=== PATIENT | female | born 1955 | race Caucasian/White ===

== ENCOUNTER 2017-05-07 16:42 | Emergency (ER) | payer MEDICARE ==
[~2017-05-07] VITALS: Ht 172.7 cm; Wt 89.4 kg
[~2017-05-07 16:42] MED LIST: AMLO5 PO; ASPI81TA82 PO; BACT2OIN TOP; CARV3.125 PO; CEPH500C3 PO; LEXA20TA PO; LISI40TA PO; MORP60TA20 OR; PRAS10 PO; PRIL20CA PO; TIZA4 PO; ZOCO40TA PO
[2017-05-07 16:49] VITALS: BP 182/86; PULSE 81; RESP 16; TEMP 98.2; O2SAT 96
[2017-05-07] MEDS ORDERED: CARV3.12 PO (17:00)
[2017-05-07] MEDS ORDERED: NITR1SUB3 SL (17:00)
[2017-05-07] MEDS ORDERED: TIZA2CAP3 PO (17:00)
[2017-05-07] MEDS ORDERED: ESCI20TA PO (17:00)
[2017-05-07] MEDS ORDERED: ESZO1TAB4 PO (17:00)
[2017-05-07] MEDS ORDERED: AMLO10TA2 PO (17:00)
[2017-05-07] MEDS ORDERED: LISI40TA PO (17:00)
[2017-05-07] MEDS ORDERED: SIMV20TA PO (17:00)
[2017-05-07] MEDS ORDERED: ASPI-516 CHEW (17:00)
[2017-05-07] MEDS ORDERED: MORP1TAB26 PO (17:00)
[2017-05-07] MEDS ORDERED: PRAS10TA PO (17:00)
[2017-05-07] MEDS ORDERED: CLOP75TA PO (17:00)
[2017-05-07] MEDS ORDERED: AUGM875T3 PO (17:36)
[2017-05-07] MEDS ORDERED: CHLO.12%30 SWISH-SPIT (17:36)
--- NOTE | 2017-05-07 17:39 | PD ---
HPI . Dentalgia Chief Complaint: Oral / Dental Pain or Problem Time Seen by Provider: 17:04 Travel History International Travel<30 days: No Contact w/Intl Traveler<30days: No Traveled to known affect area: No History of Present Illness HPI 61 year female presents emergency department for evaluation of dentalgia. She denies any fever, chills, malaise, chest pain, shortness breath. Patient has broken and cracked teeth noted throughout the mouth. Patient states onset of pain was yesterday. PFSH Past Medical History Depression: Yes Cancer: No High Cholesterol: Yes Diabetes: Yes Patient Takes Glucophage: No Diminished Hearing: No Endocrine: No GERD: Yes Hypertension: Yes Immune Disorder: No Implanted Vascular Access Dvce: Yes (LEFT UPPER ARE PICC) Kidney Stones: Yes Musculoskeletal: Yes (CHRONIC BACK PAIN) Neurologic: No Psychiatric: Yes Reproductive: No Respiratory: Yes (chronic bronchitis from smoking) Immunizations Current: Yes Menopausal: Yes Past Surgical History Gynecologic Surgery: Yes (HAD BLADDER TACKED WITH HYST) Hysterectomy: Yes Other Surgery: Yes Social History Alcohol Use: No Tobacco Use: Yes Substance Use: No Allergies-Medications (Allergen,Severity, Reaction): Coded Allergies: diphenhydramine (Unverified Allergy, Severe, shock, 05/07/17) fentanyl (Unverified Allergy, Severe, shock, 05/07/17) oxycodone (Unverified Allergy, Severe, shock, 05/07/17) Uncoded Allergies: HORSERADISH (Allergy, Intermediate, RASH, 01/26/08) niaspan (Adverse Reaction, Intermediate, rash, 01/26/08) Reported Meds & Prescriptions Reported Meds & Active Scripts Active Chlorhexidine Gluconate (Mouth) Liq (Chlorhexidine Gluconate) 0.12% Soln 15 Ml SWISH-SPIT BID Augmentin (Amoxicillin-Clavulanate) 875-125 Mg Tab 1 Tab PO BID 7 Days Reported Nitroglycerin SL (Nitroglycerin) 0.4 Mg Subl 0.4 Mg SL DIRECTED PRN ONE TABLET UNDER THE TONGUE NEEDED FOR CHEST PAIN, MAY REPEAT EVERY FIVE MINUTES FOR A TOTAL OF 3 DOSES OR CALL 911 IF NO RELIEF Clopidogrel (Clopidogrel Bisulfate) 75 Mg Tab 75 Mg PO DAILY Tizanidine (Tizanidine HCl) 2 Mg Cap 2 Mg PO HS Eszopiclone 3 Mg Tab 3 Mg PO HS PRN Simvastatin 20 Mg Tab 20 Mg PO DAILY Escitalopram (Escitalopram Oxalate) 20 Mg Tab 20 Mg PO DAILY Morphine ER (Morphine Sulfate) 60 Mg Tab 60 Mg PO TID Aspirin 81 Mg Chew 81 Mg CHEW DAILY Carvedilol 3.125 Mg Tab 3.125 Mg PO BID Effient (Prasugrel) 10 Mg Tab 10 Mg PO DAILY Lisinopril 40 Mg Tab 40 Mg PO DAILY Amlodipine (Amlodipine Besylate) 10 Mg Tab 10 Mg PO DAILY Review of Systems Except as stated in HPI: all other systems reviewed are Neg Physical Exam Narrative GENERAL: Well-nourished, well-developed 61-year-old female patient in no acute distress. Nontoxic appearing. SKIN: Focused skin assessment warm/dry. HEAD: Normocephalic. Atraumatic. EYES: No scleral icterus. No injection or drainage. MOUTH: Left lateral mucous membranes are erythematous and edematous with small area of purulent drainage noted. Multiple cracked and broken teeth noted throughout the mouth. NECK: Supple, trachea midline. No JVD or lymphadenopathy. CARDIOVASCULAR: Regular rate and rhythm without murmurs, gallops, or rubs. RESPIRATORY: Breath sounds equal bilaterally. No accessory muscle use. GASTROINTESTINAL: Abdomen soft, non-tender, nondistended. MUSCULOSKELETAL: No cyanosis, or edema. Data Data Last Documented VS Vital Signs Date Time Temp Pulse Resp B/P (MAP) Pulse Ox O2 Delivery O2 Flow Rate FiO2 05/07/17 16:49 98.2 81 16 182/86 (118) 96 Orders Orders Ed Discharge Order (05/07/17 17:39) MDM Medical Decision Making Medical Screen Exam Complete: Yes Emergency Medical Condition: Yes Differential Diagnosis Differential diagnoses include but not limited to mouth infection, dentalgia, caries Narrative Course 61-year-old female patient presents emergency department for evaluation of dentalgia times one day. Patient has a fever, chills, malaise. Left lateral aspect of mucous membranes is erythematous and edematous with small area of purulent drainage. Patient is treated with a prescription of Augmentin and chlorhexidine mouthwash and discharged home with instructions for supportive care and to follow-up with a dentist but otherwise return to the emergency department as needed. Diagnosis Primary Impression: Infection of mouth Referrals: Dentist Patient Instructions: Dental Abscess (GEN), General Instructions Additional Instructions: Please return to emergency department if your symptoms return or worsen. Follow up with a dentist. Take medications as prescribed. Heating pad to the side of the face help facilitate draining. May take [id number] ibuprofen as needed for pain or swelling. Med/Other Pt SpecificInfo: Prescription(s) given Scripts Chlorhexidine Gluconate (Mouth) Liq (Chlorhexidine Gluconate (Mouth) Liq) 0.12% Soln 15 ML SWISH-SPIT BID, #473 ML 0 Refills Prov: Elvira Claudio 05/07/17 Amoxicillin-Clavulanate (Augmentin) 875-125 Mg Tab 1 TAB PO BID for Infection for 7 Days, #14 TAB 0 Refills Prov: Elvira Claudio 05/07/17 Disposition: 01 DISCHARGE HOME Condition: Stable Elvira Claudio May 07, 2017 17:39
== END 2017-05-07 17:45 | disposition home or self-care (01) ==
LOC: PHEFT 16:42
DX: K04.7 Periapical abscess without sinus (principal); I10 Essential (primary) hypertension; E78.00 Pure hypercholesterolemia, unspecified; Z72.0 Tobacco use
CPT/HCPCS: 99284

== ENCOUNTER 2017-09-18 10:46 | Emergency (ER) | payer MEDICARE, OTHER ==
[~2017-09-18] VITALS: Ht 172.7 cm; Wt 86.7 kg
[~2017-09-18 10:46] MED LIST changes: +AMLO10TA2 PO; -AMLO5 PO; +ASPI-516 CHEW; -ASPI81TA82 PO; +AUGM875T3 PO; -BACT2OIN TOP; +CARV3.12 PO; -CARV3.125 PO; -CEPH500C3 PO; +CHLO.12%30 SWISH-SPIT; +CLOP75TA PO; +ESCI20TA PO; +ESZO1TAB4 PO; -LEXA20TA PO; +MORP1TAB26 PO; -MORP60TA20 OR; +NITR1SUB3 SL; -PRAS10 PO; +PRAS10TA PO; -PRIL20CA PO; +SIMV20TA PO; +TIZA2CAP3 PO; -TIZA4 PO; -ZOCO40TA PO
[2017-09-18 10:51] VITALS: BP 157/118; PULSE 56; RESP 16; TEMP 98.4; O2SAT 95
--- NOTE | 2017-09-18 11:09 | PD ---
HPI Chief Complaint: Cold / Flu Symptoms Time Seen by Provider: 11:08 Travel History International Travel<30 days: No Contact w/Intl Traveler<30days: No Traveled to known affect area: No History of Present Illness HPI 62-year-old female came to the emergency room with history of left-sided chest pain. Patient says that she has had a cough for past 1 month. She has been diagnosed with flu and the cough has not gotten better. Last night she was coughing and try to get some mucus out which made her cough real hard. During this process she suddenly felt a pop on the left side of her chest and since then she has been in severe pain. The pain is worse when she takes a deep breath or moves. She came here mainly for this pain. Patient used to smoke but quit a month ago. However last night she was with her friends and they were all smoking. Patient has been using inhaler. Vital signs are stable. She looks uncomfortable. She does not require oxygen at home. The pain is on the left side coming from the back to the front. Patient is concerned if she cracked a rib. PFSH Past Medical History Narrative Medical List of her past medical, surgical, social and family history reviewed from the nursing note. Depression: Yes Cancer: No High Cholesterol: Yes Diabetes: Yes Diminished Hearing: No Endocrine: No GERD: Yes Hypertension: Yes Immune Disorder: No Implanted Vascular Access Dvce: Yes (LEFT UPPER ARE PICC) Kidney Stones: Yes Musculoskeletal: Yes (CHRONIC BACK PAIN) Neurologic: No Psychiatric: Yes Reproductive: No Respiratory: Yes (chronic bronchitis from smoking) Immunizations Current: Yes ?: Not Menopausal: Yes Past Surgical History Gynecologic Surgery: Yes (HAD BLADDER TACKED WITH HYST) Hysterectomy: Yes Other Surgery: Yes Social History Alcohol Use: No Tobacco Use: Yes Substance Use: No Allergies-Medications (Allergen,Severity, Reaction): Coded Allergies: diphenhydramine (Unverified Allergy, Severe, shock, 09/18/17) fentanyl (Unverified Allergy, Severe, shock, 09/18/17) oxycodone (Unverified Allergy, Severe, shock, 09/18/17) Uncoded Allergies: HORSERADISH (Allergy, Intermediate, RASH, 01/26/08) niaspan (Adverse Reaction, Intermediate, rash, 01/26/08) Comments List of her allergies reviewed from the nursing note. Reported Meds & Prescriptions Reported Meds & Active Scripts Active Ibuprofen 600 Mg Tab 600 Mg PO Q6H PRN Prednisone 20 Mg Tab 20 Mg PO BID 5 Days Reported Nitroglycerin SL (Nitroglycerin) 0.4 Mg Subl 0.4 Mg SL DIRECTED PRN ONE TABLET UNDER THE TONGUE NEEDED FOR CHEST PAIN, MAY REPEAT EVERY FIVE MINUTES FOR A TOTAL OF 3 DOSES OR CALL 911 IF NO RELIEF Clopidogrel (Clopidogrel Bisulfate) 75 Mg Tab 75 Mg PO DAILY Tizanidine (Tizanidine HCl) 2 Mg Cap 2 Mg PO HS Eszopiclone 3 Mg Tab 3 Mg PO HS PRN Simvastatin 20 Mg Tab 20 Mg PO DAILY Escitalopram (Escitalopram Oxalate) 20 Mg Tab 20 Mg PO DAILY Morphine ER (Morphine Sulfate) 60 Mg Tab 60 Mg PO TID Aspirin 81 Mg Chew 81 Mg CHEW DAILY Carvedilol 3.125 Mg Tab 3.125 Mg PO BID Effient (Prasugrel) 10 Mg Tab 10 Mg PO DAILY Lisinopril 40 Mg Tab 40 Mg PO DAILY Amlodipine (Amlodipine Besylate) 10 Mg Tab 10 Mg PO DAILY Narrative Medication List of her home medications reviewed from the nursing note. Review of Systems Except as stated in HPI: all other systems reviewed are Neg Cardiovascular: Positive: Chest Pain or Discomfort Respiratory: Positive: Cough Musculoskeletal: Positive: Pain Physical Exam Narrative GENERAL: Awake, alert, anxious, moderate distress SKIN: Focused skin assessment warm/dry. HEAD: Atraumatic. Normocephalic. EYES: Pupils equal and round. No scleral icterus. No injection or drainage. ENT: No nasal bleeding or discharge. Mucous membranes pink and moist. NECK: Trachea midline. No JVD. CARDIOVASCULAR: Regular rate and rhythm. No murmur appreciated. RESPIRATORY: No accessory muscle use. Coarse crackles all the patient is not taking a good inspiratory and expiratory effort GASTROINTESTINAL: Abdomen soft, non-tender, nondistended. Hepatic and splenic margins not palpable. MUSCULOSKELETAL: No obvious deformities. No clubbing. No cyanosis. No edema. Tenderness posteriorly over the ninth or 10th rib mid scapular region and anteriorly around ninth or 10th rib midclavicular region on palpation NEUROLOGICAL: Awake and alert. No obvious cranial nerve deficits. Motor grossly within normal limits. Normal speech. PSYCHIATRIC: Appropriate mood and affect; insight and judgment normal. Data Data Last Documented VS Vital Signs Date Time Temp Pulse Resp B/P (MAP) Pulse Ox O2 Delivery O2 Flow Rate FiO2 09/18/17 13:22 09/18/17 13:13 62 18 96 Room Air 09/18/17 10:51 98.4 Orders Orders Complete Blood Count With Diff (09/18/17 11:15) Basic Metabolic Panel (Bmp) (09/18/17 11:15) B-Type Natriuretic Peptide (09/18/17 11:15) Troponin I (09/18/17 11:15) Iv Access Insert/Monitor (09/18/17 11:15) Electrocardiogram (09/18/17 11:15) Ecg Monitoring (09/18/17 11:15) Oximetry (09/18/17 11:15) Oxygen Administration (09/18/17 11:15) Sodium Chloride 0.9% Flush (Ns Flush) (09/18/17 11:15) Methylprednisolone So Succ Inj (Solumedr (09/18/17 11:15) Albuterol-Ipratropium Neb (Duoneb Neb) (09/18/17 11:15) Ribs, Uni (W/Exp Cxr-Min 3vw) (09/18/17 ) Ketorolac Inj (Toradol Inj) (09/18/17 12:00) Ed Discharge Order (09/18/17 12:43) Resp Incentive Spirometry (09/18/17 ) Labs Laboratory Tests Test 09/18/17 11:30 White Blood Count 8.3 TH/MM3 Red Blood Count 4.86 MIL/MM3 Hemoglobin 13.6 GM/DL Hematocrit 41.3 % Mean Corpuscular Volume 85.0 FL Mean Corpuscular Hemoglobin 28.1 PG Mean Corpuscular Hemoglobin Concent 33.0 % Red Cell Distribution Width 12.9 % Platelet Count 457 TH/MM3 Mean Platelet Volume 7.6 FL Neutrophils (%) (Auto) 76.1 % Lymphocytes (%) (Auto) 14.3 % Monocytes (%) (Auto) 5.1 % Eosinophils (%) (Auto) 2.3 % Basophils (%) (Auto) 2.2 % Neutrophils # (Auto) 6.2 TH/MM3 Lymphocytes # (Auto) 1.2 TH/MM3 Monocytes # (Auto) 0.4 TH/MM3 Eosinophils # (Auto) 0.2 TH/MM3 Basophils # (Auto) 0.2 TH/MM3 CBC Comment DIFF FINAL Differential Comment Blood Urea Nitrogen 8 MG/DL Creatinine 0.73 MG/DL Random Glucose 97 MG/DL Calcium Level 8.6 MG/DL Sodium Level 140 MEQ/L Potassium Level 3.5 MEQ/L Chloride Level 105 MEQ/L Carbon Dioxide Level 25.4 MEQ/L Anion Gap 10 MEQ/L Estimat Glomerular Filtration Rate 81 ML/MIN Troponin I LESS THAN 0.02 NG/ML B-Type Natriuretic Peptide 146 PG/ML [facility] Medical Decision Making Medical Screen Exam Complete: Yes Emergency Medical Condition: Yes Medical Record Reviewed: Yes Interpretation(s) Twelve-lead EKG was reviewed by me. Normal sinus rhythm, normal axis, nonspecific ST-T wave changes, bradycardia. Heart rate of 51 bpm Differential Diagnosis Pneumonia, bronchitis, COPD exacerbation, rib fracture, pneumothorax Narrative Course 12:03 PM patient is getting to o [facility] and IV Solu-Medrol. Given her Toradol for pain since patient says that she takes morphine for chronic pain management and would not like any narcotics. Awaiting for x-ray and blood test results. 12:40 PM the chest x-ray does show left eighth rib fracture without any pneumothorax. Patient is already on pain management at home. She will be discharged home with incentive spirometer and steroid prescription and anti- inflammatory prescription. Procedures EKG Prior to Arrival: No Diagnosis Primary Impression: COPD exacerbation Additional Impressions: Rib fracture Qualified Codes: S22.32XA - Fracture of one rib, left side, initial encounter for closed fracture Acute chest wall pain Referrals: Primary Care Physician 2 days Additional Instructions: Use incentive spirometer as frequently as possible. Take the pain medication in addition to the medication you already take at home for pain control. Follow -up with your pain management doctor. Return to the ER if condition worsens any other new concerns. Use your inhaler every 6 hours. Scripts Ibuprofen (Ibuprofen) 600 Mg Tab 600 MG PO Q6H Y for Pain/Inflammation, #40 TAB 0 Refills Prov: Srinath Ravi MD 09/18/17 Prednisone (Prednisone) 20 Mg Tab 20 MG PO BID for 5 Days, #10 TAB 0 Refills Prov: Srinath Ravi MD 09/18/17 Disposition: 01 DISCHARGE HOME Condition: Stable Srinath Ravi MD Sep 18, 2017 11:09
[2017-09-18] MEDS ORDERED: SODIUM CHLORIDE 0.9% FLUSH 10 ML FLUSH IVF PRN (11:15)
[2017-09-18] MEDS ORDERED: methylPREDNISolone SOD SUCC 125 MG/2 ML VIAL IV PUSH ONE (11:15)
[2017-09-18] MEDS: RESP: ALBUTEROL 2.5 MG/IPRATROPIUM 0.5 MG NEB (SCH) INH ×2 (11:26→11:32)
[2017-09-18 11:38] VITALS: RESP 20; O2SAT 97
[2017-09-18 11:58] LABS: AUTOMATED NEUTROPHIL # 6.2 TH/MM3 (1.8-7.7); BASOPHIL # 0.2 TH/MM3 (0-0.2); BASOPHIL % 2.2 % (0.0-2.0); EOSINOPHIL # 0.2 TH/MM3 (0-0.4); EOSINOPHIL % 2.3 % (0.0-4.0); HEMATOCRIT 41.3 % (35.0-46.0); HEMOGLOBIN 13.6 GM/DL (11.6-15.3); LYMPH % 14.3 % (9.0-44.0); LYMPHOCYTE # 1.2 TH/MM3 (1.0-4.8); MEAN CORPUSCULAR HEMOGLOBIN 28.1 PG (27.0-34.0); MEAN PLATELET VOLUME 7.6 FL (7.0-11.0); MONO % 5.1 % (0.0-8.0); MONOCYTE # 0.4 TH/MM3 (0-0.9); NEUT % 76.1 % (16.0-70.0); PLATELET COUNT 457 TH/MM3 (150-450); RED BLOOD COUNT 4.86 MIL/MM3 (4.00-5.30); RED CELL DISTRIBUTION WIDTH 12.9 % (11.6-17.2); WHITE BLOOD COUNT 8.3 TH/MM3 (4.0-11.0)
[2017-09-18] MEDS ORDERED: KETOROLAC TROMETHAMINE 30 MG/ML (IVP) VIAL IV PUSH ONE (12:00)
[2017-09-18 12:01] LABS: CHLORIDE 105 MEQ/L (98-107); SODIUM (NA) 140 MEQ/L (136-145)
[2017-09-18 12:03] LABS: CALCIUM 8.6 MG/DL (8.5-10.1)
[2017-09-18 12:04] LABS: BICARBONATE 25.4 MEQ/L (21.0-32.0); BLOOD UREA NITROGEN 8 MG/DL (7-18); GLUCOSE,RANDOM 97 MG/DL (74-106)
[2017-09-18 12:07] LABS: CREATININE 0.73 MG/DL (0.50-1.00); GLOMERULAR FILTRATION RATE 81 ML/MIN (>89)
[2017-09-18 12:12] LABS: TROPONIN I LESS THAN 0.02 NG/ML (0.02-0.05)
--- NOTE | 2017-09-18 12:30 | RADRPT ---
EXAM DATE/TIME: 09/18/2017 11:29 [place] COMPARISON: No previous studies available for comparison. INDICATIONS : Left rib pain after 1 month of coughing. MEDICAL HISTORY : Hypercholesterolemia. Gastroesophageal reflux disease. Hypertension. TB. Mumps. Renal calculi. Di abetic. SURGICAL HISTORY : Hysterectomy. Fusion, lumbar. ENCOUNTER: Initial ACUITY: 1 month PAIN SCORE: 10/10 LOCATION: Left lateral chest FINDINGS: Multiple views of the left ribs were performed. No peritendinitis or fracture the posterior lateral a spect of #8 on the left. Osseous structures are otherwise intact. Minimal atelectatic changes in the left base. Lungs otherwise clear. Heart size is normal. CONCLUSION: Left posterolateral eighth rib fracture. Minimal atelectatic changes in the left lung base. Ken Diaz MD on September 18, 2017 at 12:24 Board Certified Radiologist. This report was verified electronically.
[2017-09-18] MEDS ORDERED: PRED20 PO (12:43)
[2017-09-18] MEDS ORDERED: IBUP-232 PO (12:43)
--- NOTE | 2017-09-18 12:56 | EKG ---
Date Performed: 09/18/2017 Time Performed: 11:24:10 PTAGE: 62 years EKG: SINUS BRADYCARDIA NONSPECIFIC T-WAVE ABNORMALITY BORDERLINE ECG PREVIOUS TRACING : 11/13/2014 15.21 DOCTOR: Gustabo Puckett Interpretating Date/Time 09/18/2017 12:54:46
[2017-09-18 13:13] VITALS: BP 124/86; PULSE 62; RESP 18; O2SAT 96
== END 2017-09-18 13:23 | disposition home or self-care (01) ==
LOC: PHED 10:46
DX: J44.1 Chronic obstructive pulmonary disease with (acute) exacerbation (principal); S22.32XA Fracture of one rib, left side, initial encounter for closed fracture; R07.89 Other chest pain; R00.1 Bradycardia, unspecified; R94.31 Abnormal electrocardiogram [ECG] [EKG]; E11.9 Type 2 diabetes mellitus without complications; I10 Essential (primary) hypertension; E78.00 Pure hypercholesterolemia, unspecified; X58.XXXA Exposure to other specified factors, initial encounter
CPT/HCPCS: 71101; 80048; 83880; 84484; 85025; 93005; 94150; 94640; 94664; 96374; 96375; 99285; J1885; J2930